=== PATIENT | male | born 1945 | race Hispanic/Latino ===

== ENCOUNTER 2017-08-02 22:56 | Inpatient (IN) | payer OTHER, MEDICARE ==
[~2017-08-02 22:56] MED LIST: AEC81 PO; AMLO5TAB2 PO; CLOP75TA32 PO; ENAL2.5T PO; FENO54TA6 PO; ISOS60TA4 PO; METO25TA6 PO; NITR0.4T50 SL; PRAV80TA21 PO
[2017-08-02] MEDS ORDERED: ASPIRIN 81MG TAB.CHEW ONE (23:13)
[2017-08-02] MEDS ORDERED: NITROGLYCERIN 0.4 MG SL TAB SL ONE (23:13)
[2017-08-02] MEDS ORDERED: NITROGLYCERIN 50 MG/D5% WATER 1 BOT ONE (23:21)
[2017-08-02 23:30] LABS: BASOPHILS % (AUTO) 0.3 % (0.0-5.0); HEMATOCRIT 41.7 % (42-54); LYMPHOCYTES % (AUTO) 29.4 % (21.0-51.0); MEAN CORPUSCULAR HEMOGLOBIN 30.2 pg (27.0-33.0); MEAN CORPUSCULAR VOLUME 88.8 fL (79-99); MONOCYTES % (AUTO) 15.3 % (3.0-13.0); PLATELET COUNT (AUTO) 181 K/uL (130-400); RED CELL DISTRIBUTION WIDTH 13.5 % (11.0-15.5); WHITE BLOOD COUNT (AUTO) 6.2 K/uL (4.8-10.8)
[2017-08-02 23:50] LABS: INR 0.96 (0.85-1.15); PARTIAL THROMBOPLASTIN TIME 27.5 SEC (26.3-35.5); PROTHROMBIN TIME 10.1 SEC (9.6-11.6)
[2017-08-03] VITALS (14 sets, daily range): BP systolic 91–145; BP diastolic 50–79
[2017-08-03 00:09] LABS: ALBUMIN 3.9 g/dL (3.5-5.0); BILIRUBIN,TOTAL 0.4 mg/dL (0.2-1.0); CREATINE KINASE MB 0.8 ng/mL (0.5-3.6); CREATININE 1.1 mg/dL (0.5-1.5); POTASSIUM 3.8 mmol/L (3.5-5.1); TOTAL PROTEIN, SERUM 7.3 g/dL (6.0-8.3)
[2017-08-03 07:11] LABS: CREATINE KINASE MB 0.8 ng/mL (0.5-3.6); TROPONIN I 0.17 ng/mL (0.00-0.06)
[2017-08-03] MEDS ORDERED: ESOM40CA PO (09:35)
[2017-08-03] MEDS ORDERED: SODIUM CHLORIDE 0.9% 1000ML 1,000 ML IV SCH (09:35)
[2017-08-03] MEDS ORDERED: RANO500T2 PO (09:35)
[2017-08-03] MEDS ORDERED: ACETAMINOPHEN 325 MG TAB PO PRN ×2 (09:45)
[2017-08-03] MEDS ORDERED: MORPHINE SULFATE 2 MG/ML 1ML SYG IV PRN (09:45)
[2017-08-03] MEDS ORDERED: MAG HYDROX/AL HYDROX/SIMETH ES 30 ML SUSP UDCUP PO PRN (09:45)
[2017-08-03] MEDS ORDERED: ONDANSETRON HCL 4 MG/2 ML VIAL IV PRN (09:45)
[2017-08-03] MEDS ORDERED: LACTULOSE 20 GM/30 ML UDCUP PO PRN (09:45)
[2017-08-03] MEDS ORDERED: DiphenhydrAMINE HCL 50 MG/ML VIAL IV PRN (09:45)
[2017-08-03] MEDS ORDERED: DIPHENHYDRAMINE HCL 25 MG CAPSULE PO PRN (09:45)
[2017-08-03] MEDS ORDERED: NITROGLYCERIN 0.4 MG SL TAB SL PRN (09:45)
[2017-08-03] MEDS ORDERED: LIDOCAINE HCL-MPF 1% 2ML VIAL IVP PRN (10:00)
[2017-08-03] MEDS ORDERED: POTASSIUM CHLORIDE 20MEQ/100ML 100 ML IV PRN (10:00)
[2017-08-03] MEDS ORDERED: POTASSIUM CHLORIDE 20 MEQ ERTAB PO PRN (10:00)
[2017-08-03] MEDS ORDERED: GLUCAGON 1MG KIT 1 MG ML IM PRN (10:00)
[2017-08-03] MEDS ORDERED: DEXTROSE 50%-WATER 50 ML DISP.SYRIN IV PRN (10:00)
[2017-08-03] MEDS ORDERED: POTASSIUM CHLORIDE 10% ELIXIR 20 MEQ/15 ML UDCUP PO PRN (10:00)
[2017-08-03] MEDS ORDERED: IOPAMIDOL-370 75 ML VIAL IV ONE (10:20)
[2017-08-03] MEDS ORDERED: IOPAMIDOL-370 100 ML VIAL IV ONE (10:20)
[2017-08-03] MEDS ORDERED: SODIUM BICARB 50MEQ 50ML VIAL ONE (10:20)
[2017-08-03] MEDS ORDERED: HEPARIN SODIUM 1000UNIT/ML 10ML VIAL ONE (10:20)
[2017-08-03] MEDS ORDERED: NITROGLYCERIN 50 MG/D5% WATER 0 BOT ONE (10:21)
[2017-08-03] MEDS ORDERED: LIDOCAINE HCL 2% 20ML ONE (10:21)
[2017-08-03] MEDS ORDERED: ISOVUE-370 50ML VIAL IV ONE (10:40)
[2017-08-03] MEDS ORDERED: HYDRALAZINE HCL 20 MG/ML VIAL ONE (11:05)
[2017-08-03] MEDS ORDERED: METOPROLOL TARTRATE 1 MG/ML 5ML VIAL IV ONE ×2 (11:25→11:31)
[2017-08-03] MEDS: INSULIN HUMULIN R 100 UNIT/ML 3ML SQ SCH ×3 (11:30→20:09)
[2017-08-03] MEDS ORDERED: FENTANYL CITRATE PF 50 MCG/1 ML 2ML VIAL ONE (11:36)
[2017-08-03] MEDS: SODIUM CHLORIDE 0.9% 1000ML 1,000 ML IV SCH ×2 (12:39→22:44)
[2017-08-03] MEDS ORDERED: ONDANSETRON HCL 4 MG/2 ML VIAL IVP PRN (12:45)
[2017-08-03] MEDS ORDERED: ASPIRIN 81MG TAB.CHEW ONE (12:45)
[2017-08-03] MEDS ORDERED: TEMAZEPAM 30 MG CAP PO PRN (12:45)
[2017-08-03] MEDS ORDERED: CLOPIDOGREL BISULFATE 75 MG TAB ONE (12:45)
[2017-08-03] MEDS ORDERED: ACETAMINOPHEN-CODEINE 300/30MG TAB PO PRN (12:45)
[2017-08-03] MEDS ORDERED: NITROGLYCERIN 50 MG/D5% WATER 1 BOT IV PRN (12:45)
[2017-08-03] MEDS: ACETAMINOPHEN-CODEINE 300/30MG TAB PO PRN ×2 (16:19→20:06)
[2017-08-04] VITALS (13 sets, daily range): BP systolic 118–170; BP diastolic 58–79
[2017-08-04 04:30] LABS: MEAN CORPUSCULAR HEMOGLOBIN 30.3 pg (27.0-33.0); MEAN CORPUSCULAR HGB CONC 33.8 g/dL (32.0-36.0); MEAN CORPUSCULAR VOLUME 89.5 fL (79-99); PLATELET COUNT (AUTO) 164 K/uL (130-400); RED BLOOD CELL COUNT(AUTO) 4.47 MIL/uL (4.50-6.20); RED CELL DISTRIBUTION WIDTH 14.1 % (11.0-15.5); WHITE BLOOD COUNT (AUTO) 7.8 K/uL (4.8-10.8)
[2017-08-04 04:43] LABS: POTASSIUM 4.3 mmol/L (3.5-5.1)
[2017-08-04] MEDS: INSULIN HUMULIN R 100 UNIT/ML 3ML SQ SCH ×2 (05:38→11:16)
[2017-08-04] MEDS ORDERED: ATORVASTATIN CALCIUM 20 MG TABLET PO SCH (09:00)
[2017-08-04] MEDS ORDERED: CLOPIDOGREL BISULFATE 75 MG TAB PO SCH ×2 (09:00)
[2017-08-04] MEDS ORDERED: PANTOPRAZOLE SODIUM 40 MG TABLET.DR PO SCH (09:00)
[2017-08-04] MEDS ORDERED: ENOXAPARIN SODIUM 40 MG/0.4 ML SYRINGE SQ SCH (09:00)
[2017-08-04] MEDS ORDERED: ASPIRIN 325MG EC TAB 325 MG TABLET.DR PO SCH (09:00)
[2017-08-04] MEDS ORDERED: **HM** FENOFIBRATE 54MG PO SCH (09:00)
[2017-08-04] MEDS ORDERED: ASPIRIN 81MG TAB.CHEW PO SCH (09:00)
[2017-08-04] MEDS ORDERED: ENALAPRIL MALEATE 5 MG TAB PO SCH (09:00)
[2017-08-04] MEDS ORDERED: AMLODIPINE BESYLATE 5 MG TAB PO SCH (09:00)
[2017-08-04] MEDS ORDERED: METOPROLOL TARTRATE 25 MG TAB PO SCH (09:00)
[2017-08-04] MEDS ORDERED: ROSU20TA PO (10:00)
[2017-08-04] MEDS ORDERED: CLOP75TA32 PO (12:35)
== END 2017-08-04 13:58 | disposition home or self-care (01) | DRG 247 ==
LOC: EDH 22:56 → EDHIP 08-03 00:30 → 2CH 08-03 12:59
PROVIDERS: ADMIT Internal Medicine; ATTEND Internal Medicine
PROC: 027236Z Dilation of Coronary Artery, Three Arteries with Three Drug-eluting Intraluminal Devices, Percutaneous Approach (ICD-10-PCS; principal; 2017-08-03)
PROC: 4A023N7 Measurement of Cardiac Sampling and Pressure, Left Heart, Percutaneous Approach (ICD-10-PCS; 2017-08-03)
PROC: B2151ZZ Fluoroscopy of Left Heart using Low Osmolar Contrast (ICD-10-PCS; 2017-08-03)
PROC: B2111ZZ Fluoroscopy of Multiple Coronary Arteries using Low Osmolar Contrast (ICD-10-PCS; 2017-08-03)
PROC: B2131ZZ Fluoroscopy of Multiple Coronary Artery Bypass Grafts using Low Osmolar Contrast (ICD-10-PCS; 2017-08-03)
PROC: B2181ZZ Fluoroscopy of Left Internal Mammary Bypass Graft using Low Osmolar Contrast (ICD-10-PCS; 2017-08-03)
DX: I25.110 Atherosclerotic heart disease of native coronary artery with unstable angina pectoris (principal); E11.22 Type 2 diabetes mellitus with diabetic chronic kidney disease; E11.42 Type 2 diabetes mellitus with diabetic polyneuropathy; I16.1 Hypertensive emergency; E11.51 Type 2 diabetes mellitus with diabetic peripheral angiopathy without gangrene; I13.10 Hypertensive heart and chronic kidney disease without heart failure, with stage 1 through stage 4 chronic kidney disease, or unspecified chronic kidney disease; I25.82 Chronic total occlusion of coronary artery; E78.2 Mixed hyperlipidemia; N18.2 Chronic kidney disease, stage 2 (mild); Z68.37 Body mass index [BMI] 37.0-37.9, adult; I87.2 Venous insufficiency (chronic) (peripheral); I70.203 Unspecified atherosclerosis of native arteries of extremities, bilateral legs; K21.9 Gastro-esophageal reflux disease without esophagitis; H26.9 Unspecified cataract; Z83.3 Family history of diabetes mellitus; Z82.49 Family history of ischemic heart disease and other diseases of the circulatory system; Z88.6 Allergy status to analgesic agent; Z88.2 Allergy status to sulfonamides; Z88.8 Allergy status to other drugs, medicaments and biological substances; Z79.82 Long term (current) use of aspirin; Z79.899 Other long term (current) drug therapy; Z87.891 Personal history of nicotine dependence; Z95.1 Presence of aortocoronary bypass graft; Z95.5 Presence of coronary angioplasty implant and graft
CPT/HCPCS: 36415; 71045; 80048; 80053; 80061; 82550; 82553; 82948; 83874; 84484; 85025; 85027; 85347; 85610; 85730; 93005; 93459; 99152; 99153; 99291; C1725; C1760; C1769; C1884; C1887; C1894; C9600; C9601; C9604; C9605; J0360; J1644; J1815; J2405; J3010; J3490; J7030; Q9967

== ENCOUNTER 2018-10-17 06:33 | Emergency (ER) | payer OTHER, MEDICARE ==
[~2018-10-17 06:33] MED LIST changes: -AMLO5TAB2 PO; +AMLO5TAB9 PO; +ESOM40CA PO; -FENO54TA6 PO; -PRAV80TA21 PO; +RANO500T2 PO; +ROSU20TA23 PO
[2018-10-17 07:26] LABS: APPEARANCE,URINE Clear (CLEAR); BILIRUBIN,URINE Negative (NEGATIVE); COLOR,URINE Yellow (YELLOW); GLUCOSE, URINE (UA) TRACE mg/dL (NEGATIVE); KETONES,URINE Negative (NEGATIVE); LEUKOCYTE ESTERASE ,URINE Small (NEGATIVE); NITRATE,URINE Negative (NEGATIVE); OCCULT BLOOD,URINE Negative (NEGATIVE); PH,URINE 7.5 (5.0-8.0); PROTEIN,URINE Trace mg/dL (NEGATIVE)
[2018-10-17] MEDS ORDERED: ACETAMINOPHEN 325 MG TAB ONE (07:34)
[2018-10-17] MEDS ORDERED: IPRATROPIUM/ALBUTEROL SULFATE 3 ML SOLUTION IH ONE (07:53)
[2018-10-17 07:54] LABS: BASOPHILS % (AUTO) 0.2 % (0.0-5.0); EOSINOPHILS % (AUTO) 0.6 % (0.0-8.0); HEMATOCRIT 39.6 % (42-54); LYMPHOCYTES % (AUTO) 3.7 % (21.0-51.0); MEAN CORPUSCULAR HEMOGLOBIN 30.3 pg (27.0-33.0); MEAN CORPUSCULAR HGB CONC 33.7 g/dL (32.0-36.0); MEAN CORPUSCULAR VOLUME 89.7 fL (79-99); MONOCYTES % (AUTO) 7.4 % (3.0-13.0); NEUTROPHILS % (AUTO) 88.1 % (40.0-77.0); PLATELET COUNT (AUTO) 164 K/uL (130-400); RED BLOOD CELL COUNT(AUTO) 4.42 MIL/uL (4.50-6.20); RED CELL DISTRIBUTION WIDTH 14.1 % (11.0-15.5); WHITE BLOOD COUNT (AUTO) 7.1 K/uL (4.8-10.8)
[2018-10-17 08:01] LABS: CARBON DIOXIDE 24 mmol/L (21-32); CHLORIDE 99 mmol/L (101-111); GLOMERULAR FILTR. RATE CALC 78 mL/min (>60); GLUCOSE,RANDOM 168 mg/dL (70-105); POTASSIUM 3.9 mmol/L (3.5-5.1); SODIUM SERUM 133 mmol/L (136-145); UREA NITROGEN, BLOOD 8 mg/dL (7-18)
[2018-10-17 08:07] LABS: INR 1.02 (0.85-1.15); PARTIAL THROMBOPLASTIN TIME 29.2 SEC (26.3-35.5); PROTHROMBIN TIME 10.7 SEC (9.6-11.6)
[2018-10-17 08:13] LABS: ALANINE AMINOTRANSFERASE 27 U/L (12-78); ALBUMIN 3.8 g/dL (3.5-5.0); ASPARTATE AMINOTRANSFERASE 21 U/L (10-37); BILIRUBIN,TOTAL 0.4 mg/dL (0.2-1.0); CREATINE KINASE, TOTAL 171 U/L (21-232); MYOGLOBIN 106 ng/mL (10-92); TOTAL PROTEIN, SERUM 7.4 g/dL (6.0-8.3); TROPONIN I < 0.04 ng/mL (0.00-0.06)
[2018-10-17 08:33] LABS: BACTERIA,URINE Rare /HPF (None Seen); RBC,URINE 0-1 /HPF (0-1); SQUAMOUS EPITHELIAL CELL,UR Rare /HPF (0-2)
[2018-10-17] MEDS ORDERED: DEXAMETHASONE SOD PHOSPHATE 10MG/ML 1ML VIAL ONE (08:40)
== END 2018-10-17 10:58 | disposition home or self-care (01) ==
LOC: EDH 06:33
DX: J20.9 Acute bronchitis, unspecified (principal); I10 Essential (primary) hypertension; I25.10 Atherosclerotic heart disease of native coronary artery without angina pectoris; E78.5 Hyperlipidemia, unspecified; Z88.2 Allergy status to sulfonamides
CPT/HCPCS: 36415; 71045; 80053; 81001; 82550; 83605 ×2; 83874; 84484; 85025; 85610; 85730; 87040 ×2; 87077; 87088; 87186; 87804 ×2; 93005; 94640; 96374; 96375; 99284; J1100

== ENCOUNTER 2019-01-08 11:03 | Emergency (ER) | payer OTHER, MEDICARE ==
[2019-01-08 12:21] LABS: BASOPHILS % (AUTO) 0.3 % (0.0-5.0); EOSINOPHILS % (AUTO) 0.3 % (0.0-8.0); HEMATOCRIT 41.5 % (42-54); LYMPHOCYTES % (AUTO) 8.7 % (21.0-51.0); MEAN CORPUSCULAR HEMOGLOBIN 29.8 pg (27.0-33.0); MEAN CORPUSCULAR HGB CONC 33.4 g/dL (32.0-36.0); MEAN CORPUSCULAR VOLUME 89.2 fL (79-99); MONOCYTES % (AUTO) 11.1 % (3.0-13.0); NEUTROPHILS % (AUTO) 79.6 % (40.0-77.0); PLATELET COUNT (AUTO) 211 K/uL (130-400); RED BLOOD CELL COUNT(AUTO) 4.65 MIL/uL (4.50-6.20); RED CELL DISTRIBUTION WIDTH 14.1 % (11.0-15.5)
[2019-01-08 12:34] LABS: CREATININE 0.9 mg/dL (0.5-1.5); POTASSIUM 4.4 mmol/L (3.5-5.1)
[2019-01-08 12:39] LABS: ALBUMIN 3.9 g/dL (3.5-5.0); BILIRUBIN,TOTAL 0.9 mg/dL (0.2-1.0); TOTAL PROTEIN, SERUM 7.5 g/dL (6.0-8.3)
== END 2019-01-08 14:15 | disposition home or self-care (01) ==
LOC: EDH 11:03
DX: I10 Essential (primary) hypertension (principal); R42 Dizziness and giddiness; R53.1 Weakness; E78.5 Hyperlipidemia, unspecified; I25.10 Atherosclerotic heart disease of native coronary artery without angina pectoris; Z88.2 Allergy status to sulfonamides; Z95.1 Presence of aortocoronary bypass graft; Z98.890 Other specified postprocedural states
CPT/HCPCS: 36415; 80053; 82550; 84484; 85025; 93005

== ENCOUNTER 2019-03-01 11:04 | Emergency (ER) | payer OTHER, MEDICARE ==
[2019-03-01] MEDS ORDERED: CLINDAMYCIN HCL 150 MG CAP ONE (11:27)
== END 2019-03-01 11:47 | disposition home or self-care (01) ==
LOC: EDH 11:04
DX: L72.3 Sebaceous cyst (principal); L03.312 Cellulitis of back [any part except buttock and flank]; E78.5 Hyperlipidemia, unspecified; I10 Essential (primary) hypertension; I25.10 Atherosclerotic heart disease of native coronary artery without angina pectoris; Z88.2 Allergy status to sulfonamides; Z95.1 Presence of aortocoronary bypass graft
CPT/HCPCS: 10061

== ENCOUNTER 2020-11-03 22:08 | Observation (INO) | payer OTHER, MEDICARE ==
[~2020-11-03] VITALS: Ht 172.7 cm; Wt 94.3 kg
[~2020-11-03 22:08] MED LIST changes: +AMLO-257 PO; -AMLO5TAB9 PO; -ENAL2.5T PO; +ENAL2.5T16 PO; -ISOS60TA4 PO; +ISOS60TA77 PO
[2020-11-03] MEDS ORDERED: NITROGLYCERIN 1GM/1 INCH PACKET TD ONE (22:24)
[2020-11-03] MEDS ORDERED: ASPIRIN 325 MG TABLET ONE (22:24)
[2020-11-03 22:31] LABS: BASOPHILS % (AUTO) 0.5 % (0.0-5.0); EOSINOPHILS % (AUTO) 1.7 % (0.0-8.0); HEMATOCRIT 42.1 % (42-54); LYMPHOCYTES % (AUTO) 20.6 % (21.0-51.0); MEAN CORPUSCULAR HEMOGLOBIN 29.6 pg (27.0-33.0); MEAN CORPUSCULAR HGB CONC 33.3 g/dL (32.0-36.0); MONOCYTES % (AUTO) 4.1 % (3.0-13.0); NEUTROPHILS % (AUTO) 71.9 % (40.0-77.0); PLATELET COUNT (AUTO) 165 K/uL (130-400); RED BLOOD CELL COUNT(AUTO) 4.73 MIL/uL (4.50-6.20); RED CELL DISTRIBUTION WIDTH 13.2 % (11.0-15.5); WHITE BLOOD COUNT (AUTO) 4.2 K/uL (4.8-10.8)
[2020-11-03 22:48] LABS: CREATININE 1.2 mg/dL (0.5-1.5); POTASSIUM 3.9 mmol/L (3.5-5.1)
[2020-11-03 22:52] LABS: ALBUMIN 4.1 g/dL (3.5-5.0); BILIRUBIN,TOTAL 0.5 mg/dL (0.2-1.0); TOTAL PROTEIN, SERUM 8.1 g/dL (6.0-8.3)
[2020-11-03 22:52] LABS: APPEARANCE,URINE Cloudy (CLEAR); BILIRUBIN,URINE Negative (NEGATIVE); COLOR,URINE Yellow (YELLOW); GLUCOSE, URINE (UA) >=1000 mg/dL (NEGATIVE); KETONES,URINE Negative (NEGATIVE); LEUKOCYTE ESTERASE ,URINE Moderate (NEGATIVE); NITRATE,URINE Positive (NEGATIVE); OCCULT BLOOD,URINE Moderate (NEGATIVE); PROTEIN,URINE POS 2+ mg/dL (NEGATIVE)
[2020-11-03 23:07] LABS: B-TYPE NATRIURETIC PEPTIDE 94 pg/mL (0-100)
[2020-11-03 23:14] LABS: BACTERIA,URINE Many /HPF (None Seen); WBC,URINE 26-50 /HPF (0-1)
[2020-11-04] MEDS ORDERED: ACETAMINOPHEN 325 MG TAB ONE (01:15)
[2020-11-04] MEDS ORDERED: 1/2 NORMAL SALINE 1,000 ML IV ONE (01:48)
[2020-11-04 06:49] LABS: TROPONIN I 0.19 ng/mL (0.00-0.06)
[2020-11-04] MEDS ORDERED: PANT40TA54 PO (08:24)
[2020-11-04] MEDS ORDERED: ISOS120T14 PO (08:24)
[2020-11-04] MEDS ORDERED: FENO54TA6 PO (08:25)
[2020-11-04] MEDS ORDERED: ATOR20TA65 PO (08:25)
[2020-11-04] MEDS ORDERED: RAMI10CA69 PO (08:25)
[2020-11-04] MEDS ORDERED: DEXTROSE 50%-WATER 50 ML DISP.SYRIN IV PRN (09:00)
[2020-11-04] MEDS ORDERED: NITROGLYCERIN 0.4 MG SL TAB SL PRN (09:00)
[2020-11-04] MEDS ORDERED: LACTULOSE 20 GM/30 ML UDCUP PO PRN (09:00)
[2020-11-04] MEDS ORDERED: MAG HYDROX/AL HYDROX/SIMETH ES 30 ML SUSP UDCUP PO PRN (09:00)
[2020-11-04] MEDS: CLOPIDOGREL BISULFATE 75 MG TAB PO SCH (09:00)
[2020-11-04] MEDS: LISINOPRIL 40 MG TABLET PO SCH (09:00)
[2020-11-04] MEDS ORDERED: POTASSIUM CHLORIDE 20MEQ/100ML 100 ML IV PRN (09:00)
[2020-11-04] MEDS ORDERED: GLUCAGON 1MG KIT 1 MG ML IM PRN (09:00)
[2020-11-04] MEDS ORDERED: POTASSIUM CHLORIDE 10% ELIXIR 20 MEQ/15 ML UDCUP PO PRN (09:00)
[2020-11-04] MEDS ORDERED: LIDOCAINE HCL-MPF 1% 2ML VIAL IV PRN ×2 (09:00)
[2020-11-04] MEDS: ***HM***(Fenofibrate 54 MG) PO SCH (09:00)
[2020-11-04] MEDS: ISOSORBIDE MONO 60 MG TAB.SR PO SCH (09:00)
[2020-11-04] MEDS: PANTOPRAZOLE SODIUM 40 MG TABLET.DR PO SCH (09:00)
[2020-11-04] MEDS ORDERED: POTASSIUM CHLORIDE 10MEQ/100ML 100 ML IV PRN (09:00)
[2020-11-04] MEDS: AMLODIPINE BESYLATE 5 MG TAB PO SCH (09:00)
[2020-11-04] MEDS ORDERED: ONDANSETRON HCL 4 MG/2 ML VIAL IV PRN (09:00)
[2020-11-04] MEDS ORDERED: ACETAMINOPHEN 325 MG TAB PO PRN ×2 (09:00)
[2020-11-04] MEDS ORDERED: DIPHENHYDRAMINE HCL 25 MG CAPSULE PO PRN (09:00)
[2020-11-04] MEDS ORDERED: DiphenhydrAMINE HCL 50 MG/ML VIAL IV PRN (09:00)
[2020-11-04] MEDS: METOPROLOL TARTRATE 25 MG TAB PO SCH (09:00)
[2020-11-04] MEDS ORDERED: POTASSIUM CHLORIDE 20 MEQ ERTAB PO PRN (09:00)
[2020-11-04 09:15] VITALS: BP 183/78
[2020-11-04] MEDS: SODIUM CHLORIDE 0.9% 1000ML 1,000 ML IV SCH ×2 (09:15→22:42)
[2020-11-04] MEDS ORDERED: GLIPIZIDE XL 10MG TAB PO SCH (09:45)
[2020-11-04 11:00] VITALS: BP 166/71
[2020-11-04] MEDS: INSULIN HUMULIN R 100 UNIT/ML 3ML SQ SCH ×3 (11:30→21:05)
[2020-11-04] MEDS: ENOXAPARIN SODIUM 40 MG/0.4 ML SYRINGE SQ SCH (11:30)
[2020-11-04] MEDS: CEFTRIAXONE SODIUM 1 GM IV SCH ×4 (12:43→22:41)
[2020-11-04] MEDS ORDERED: REGADENOSON 0.4 MG/5 ML PF SYG IVP SCH (15:30)
[2020-11-04 20:00] VITALS: BP 161/75
[2020-11-04] MEDS ORDERED: ATORVASTATIN CALCIUM 20 MG TABLET PO SCH (21:00)
[2020-11-05 00:06] VITALS: BP 119/71
[2020-11-05 04:00] VITALS: BP 153/61
[2020-11-05 05:24] LABS: MEAN CORPUSCULAR HEMOGLOBIN 29.4 pg (27.0-33.0); MEAN CORPUSCULAR HGB CONC 33.2 g/dL (32.0-36.0); MEAN CORPUSCULAR VOLUME 88.7 fL (79-99); RED BLOOD CELL COUNT(AUTO) 4.62 MIL/uL (4.50-6.20); RED CELL DISTRIBUTION WIDTH 12.9 % (11.0-15.5)
[2020-11-05] MEDS: INSULIN HUMULIN R 100 UNIT/ML 3ML SQ SCH (06:37)
[2020-11-05 07:30] VITALS: BP 167/76
[2020-11-05] MEDS: ***HM***(Fenofibrate 54 MG) PO SCH (09:00)
[2020-11-05] MEDS ORDERED: RAMI10CA69 PO (09:40)
[2020-11-05] MEDS ORDERED: CEPH500T PO (09:40)
[2020-11-05] MEDS ORDERED: EMPA25TA PO (09:41)
[2020-11-05] MEDS: METOPROLOL TARTRATE 25 MG TAB PO SCH (09:55)
[2020-11-05] MEDS: ISOSORBIDE MONO 60 MG TAB.SR PO SCH (09:56)
[2020-11-05] MEDS: PANTOPRAZOLE SODIUM 40 MG TABLET.DR PO SCH (09:56)
[2020-11-05] MEDS: LISINOPRIL 40 MG TABLET PO SCH (09:57)
[2020-11-05] MEDS: AMLODIPINE BESYLATE 5 MG TAB PO SCH (09:57)
[2020-11-05] MEDS: CLOPIDOGREL BISULFATE 75 MG TAB PO SCH (09:57)
[2020-11-05] MEDS: ENOXAPARIN SODIUM 40 MG/0.4 ML SYRINGE SQ SCH (09:58)
[2020-11-05] MEDS: CEFTRIAXONE SODIUM 1 GM IV SCH (10:07)
[2020-11-16] MEDS ORDERED: HYDRALAZINE HCL 20 MG/ML VIAL ONE (22:28)
== END 2020-11-05 12:00 | disposition home or self-care (01) ==
LOC: EDH 22:08 → EDHIP 23:30 → INTOOBSV 23:30 → 3CH 11-04 10:20
PROVIDERS: ADMIT Internal Medicine; ATTEND Internal Medicine
DX: I25.119 Atherosclerotic heart disease of native coronary artery with unspecified angina pectoris (principal); E11.65 Type 2 diabetes mellitus with hyperglycemia; I49.5 Sick sinus syndrome; I13.10 Hypertensive heart and chronic kidney disease without heart failure, with stage 1 through stage 4 chronic kidney disease, or unspecified chronic kidney disease; E11.22 Type 2 diabetes mellitus with diabetic chronic kidney disease; N18.2 Chronic kidney disease, stage 2 (mild); E78.2 Mixed hyperlipidemia; E66.01 Morbid (severe) obesity due to excess calories; N39.0 Urinary tract infection, site not specified; B96.20 Unspecified Escherichia coli [E. coli] as the cause of diseases classified elsewhere; I25.2 Old myocardial infarction; I87.8 Other specified disorders of veins; E11.51 Type 2 diabetes mellitus with diabetic peripheral angiopathy without gangrene; K21.9 Gastro-esophageal reflux disease without esophagitis; E11.42 Type 2 diabetes mellitus with diabetic polyneuropathy; I42.9 Cardiomyopathy, unspecified; Z95.1 Presence of aortocoronary bypass graft; Z95.5 Presence of coronary angioplasty implant and graft; Z91.19 Patient's noncompliance with other medical treatment and regimen; Z79.02 Long term (current) use of antithrombotics/antiplatelets; Z79.82 Long term (current) use of aspirin; Z79.84 Long term (current) use of oral hypoglycemic drugs; Z79.899 Other long term (current) drug therapy; Z88.2 Allergy status to sulfonamides; Z88.6 Allergy status to analgesic agent; Z68.38 Body mass index [BMI] 38.0-38.9, adult
CPT/HCPCS: 36415 ×3; 71045; 78452; 80048; 80053; 81001; 82550 ×2; 82948 ×3; 83690; 83874; 83880; 84484 ×3; 85025; 85027; 87077; 87088; 87186; 93005 ×2; 93017; 93306; 93356; 96361 ×2; 96372; 96374; 96376; 99285; A9500 ×2; G0378 ×26; J0696 ×2; J1650 ×2; J1815 ×3; J2785

== ENCOUNTER 2022-06-03 22:38 | Emergency (ER) | payer MEDICARE ==
[~2022-06-03] VITALS: Ht 172.7 cm; Wt 88.9 kg
[~2022-06-03 22:38] MED LIST changes: +ATOR20TA65 PO; +CEPH500T PO; +EMPA25TA PO; -ENAL2.5T16 PO; -ESOM40CA PO; +FENO54TA6 PO; +ISOS120T14 PO; -ISOS60TA77 PO; +PANT40TA54 PO; +RAMI10CA69 PO; -RANO500T2 PO; -ROSU20TA23 PO
[2022-06-03] MEDS ORDERED: DOXY-469 PO (23:39)
[2022-06-03 23:56] VITALS: BP 160/92
[2022-06-04] MEDS ORDERED: DOXYCYCLINE HYCLATE 100 MG TABLET PO SCH
== END 2022-06-04 00:13 | disposition home or self-care (01) ==
LOC: EDH 22:38
DX: I10 Essential (primary) hypertension (principal); R68.83 Chills (without fever); E78.00 Pure hypercholesterolemia, unspecified; E11.9 Type 2 diabetes mellitus without complications; Z79.84 Long term (current) use of oral hypoglycemic drugs; Z88.2 Allergy status to sulfonamides; Z88.5 Allergy status to narcotic agent; Z88.8 Allergy status to other drugs, medicaments and biological substances

== ENCOUNTER 2022-11-09 17:47 | Emergency (ER) | payer MEDICARE ==
[~2022-11-09] VITALS: Ht 172.7 cm; Wt 87.1 kg
[~2022-11-09 17:47] MED LIST changes: +DOXY-469 PO
[2022-11-09] MEDS ORDERED: DEXAMETHASONE SOD PHOSPHATE 4 MG/ML 1ML VIAL IM SCH (18:30)
[2022-11-09] MEDS ORDERED: HYDROCODONE/ACETAMINOPHEN 5/325 MG TAB PO ONE (18:30)
[2022-11-09] MEDS ORDERED: KETOROLAC 30MG VIAL (30MG/ML) IM ONE (18:30)
[2022-11-09] MEDS ORDERED: LIDOCAINE HCL 1% 20 ML VIAL ONE (18:48)
[2022-11-09] MEDS ORDERED: CLIN-141 PO (19:19)
[2022-11-09] MEDS ORDERED: IBUP-2070 PO (19:19)
[2022-11-09] MEDS ORDERED: MUPI22OI2 TP (19:19)
[2022-11-09] MEDS ORDERED: CEFTRIAXONE 1G VIAL IM ONE (19:30)
[2022-11-09] MEDS ORDERED: IBUPROFEN 600 MG TABLET PO ONE (19:30)
[2022-11-09 19:35] VITALS: BP 148/74
== END 2022-11-09 20:01 | disposition home or self-care (01) ==
LOC: EDH 17:47
DX: L02.212 Cutaneous abscess of back [any part, except buttock and flank] (principal); I10 Essential (primary) hypertension; E78.00 Pure hypercholesterolemia, unspecified; E11.9 Type 2 diabetes mellitus without complications; M19.90 Unspecified osteoarthritis, unspecified site; Z88.8 Allergy status to other drugs, medicaments and biological substances; Z79.899 Other long term (current) drug therapy
CPT/HCPCS: 99283; 10060; 96372; J0696

== ENCOUNTER 2023-02-07 15:52 | Emergency (ER) | payer OTHER, MEDICARE ==
[~2023-02-07] VITALS: Ht 172.7 cm; Wt 87.1 kg
[~2023-02-07 15:52] MED LIST changes: +CLIN-141 PO; +IBUP-2070 PO; +MUPI22OI2 TP
[2023-02-07 16:00] VITALS: BP 126/74; PULSE 66; RESP 18; O2SAT 98
== END 2023-02-07 16:40 | disposition home or self-care (01) ==
LOC: EDH 15:52
DX: Z04.1 Encounter for examination and observation following transport accident (principal); I10 Essential (primary) hypertension; E11.9 Type 2 diabetes mellitus without complications; E78.00 Pure hypercholesterolemia, unspecified; M19.90 Unspecified osteoarthritis, unspecified site; Z79.84 Long term (current) use of oral hypoglycemic drugs; Z79.899 Other long term (current) drug therapy; Z85.46 Personal history of malignant neoplasm of prostate; Z88.2 Allergy status to sulfonamides; Z88.8 Allergy status to other drugs, medicaments and biological substances; Z95.1 Presence of aortocoronary bypass graft; Z98.890 Other specified postprocedural states; V89.2XXA Person injured in unspecified motor-vehicle accident, traffic, initial encounter; Y93.I9 Activity, other involving external motion; Y92.488 Other paved roadways as the place of occurrence of the external cause; Y99.8 Other external cause status
CPT/HCPCS: 99281

== ENCOUNTER 2023-10-13 06:01 | Observation (INO) | payer MEDICARE ==
[~2023-10-13] VITALS: Ht 172.7 cm; Wt 86.7 kg
[~2023-10-13 06:01] MED LIST changes: +ACET-2079 PO; -ATOR20TA65 PO; +ATOR40TA71 PO; -CEPH500T PO; -CLIN-141 PO; -DOXY-469 PO; +ESOM40CA54 PO; +EZET10TA48 PO; +FURO20TA4 PO; -IBUP-2070 PO; -ISOS120T14 PO; +ISOS60TA77 PO; +METO25 PO; -MUPI22OI2 TP; -PANT40TA54 PO; -RAMI10CA69 PO; +RANO500T2 PO; +SACU1TAB PO
[2023-10-13 06:39] LABS: BASOPHILS # (AUTO) 0.03 K/uL (0.00-0.20); BASOPHILS % (AUTO) 0.7 % (0.0-5.0); EOSINOPHILS % (AUTO) 2.4 % (0.0-8.0); HEMATOCRIT 45.5 % (42-54); IMMATURE GRANULOCYTE ABSOLUTE 0.03 K/uL (0-1); LYMPHOCYTES # (AUTO) 0.7 K/uL (1.0-4.8); LYMPHOCYTES % (AUTO) 15.7 % (21.0-51.0); MEAN CORPUSCULAR HEMOGLOBIN 29.6 pg (27.0-33.0); MEAN CORPUSCULAR VOLUME 89.7 fL (79-99); MONOCYTES # (AUTO) 0.6 K/uL (0.1-1.0); NEUTROPHILS # (AUTO) 2.8 K/uL (1.8-7.7); NEUTROPHILS % (AUTO) 66.5 % (40.0-77.0); PLATELET COUNT (AUTO) 184 K/uL (130-400); RED BLOOD CELL COUNT(AUTO) 5.07 MIL/uL (4.50-6.20); RED CELL DISTRIBUTION WIDTH 13.4 % (11.0-15.5); WHITE BLOOD COUNT (AUTO) 4.2 K/uL (4.8-10.8)
[2023-10-13 06:47] LABS: INR <= 0.93 (0.85-1.15); PROTHROMBIN TIME 10.4 SEC (9.6-11.6)
[2023-10-13] MEDS: ENOXAPARIN SODIUM 80 MG/0.8 ML SQ ONE (06:47)
[2023-10-13] MEDS: METOPROLOL TARTRATE 1 MG/ML 5ML VIAL IV ONE (06:48)
[2023-10-13 06:49] LABS: PARTIAL THROMBOPLASTIN TIME 28.6 SEC (26.3-35.5)
[2023-10-13] MEDS: NITROGLYCERIN 1GM OINT 1 INCH/1GM TD ONE (06:49)
[2023-10-13 07:01] LABS: BILIRUBIN,TOTAL 0.7 mg/dL (0.2-1.0); CREATININE 1.2 mg/dL (0.5-1.3); MAGNESIUM 2.2 mg/dL (1.80-2.40); POTASSIUM 4.2 mmol/L (3.5-5.1); THYROID STIMULATING HORMONE 0.74 uIU/mL (0.36-3.74); TOTAL PROTEIN, SERUM 7.5 g/dL (6.0-8.3)
[2023-10-13 07:39] LABS: B-TYPE NATRIURETIC PEPTIDE 78 pg/mL (0-100)
[2023-10-13] MEDS ORDERED: NITROGLYCERIN 0.4 MG SL TAB SL PRN (14:00)
[2023-10-13] MEDS ORDERED: ARTIFICAL TEARS SOL 15 ML OP PRN ×2 (14:00→17:30)
[2023-10-13] MEDS ORDERED: HYDRALAZINE 25MG TABLET PO PRN (14:00)
[2023-10-13] MEDS ORDERED: DIPHENHYDRAMINE HCL 25 MG CAPSULE PO PRN (14:00)
[2023-10-13] MEDS ORDERED: ALPRAZOLAM 0.5 MG TABLET PO PRN (14:00)
[2023-10-13] MEDS ORDERED: ACETAMINOPHEN 325 MG TAB PO PRN ×2 (14:00)
[2023-10-13] MEDS ORDERED: POLYETHYLENE GLYCOL 3350 17 GM POWD.PACK PO PRN (14:00)
[2023-10-13] MEDS ORDERED: ONDANSETRON 4MG INJ IV PRN (14:00)
[2023-10-13] MEDS ORDERED: BENZOCAINE/MENTH/CETYLPYRD CL 1 EACH LOZENGE MM PRN (14:00)
[2023-10-13] MEDS ORDERED: DOCUSATE SODIUM 100 MG CAP PO PRN (14:00)
[2023-10-13] MEDS ORDERED: LOPERAMIDE HCL 2 MG CAP PO PRN (14:00)
[2023-10-13] MEDS ORDERED: GUAIFENESIN SUGAR-FREE 100 MG/5 ML UDCUP PO PRN (14:00)
[2023-10-13] MEDS ORDERED: LIDOCAINE HCL 2% VISCOUS 30 ML, MAG/ALUM/SIMETH 30ML 30 ML, DICYCLOMINE HCL 20 MG PO PRN ×2 (14:00→15:00)
[2023-10-13] MEDS ORDERED: LACTULOSE 20 GM/30 ML UDCUP PO PRN (14:00)
[2023-10-13] MEDS: INSULIN HUMULIN R 100 UNIT/ML 3ML SQ SCH (16:30)
[2023-10-13] MEDS: ISOSORBIDE MONO 60MG SR TAB PO ONE (18:22)
[2023-10-13] MEDS: IPRATROPIUM/ALBUTEROL SULFATE 3 ML SOLUTION IH SCH (19:25)
[2023-10-13 19:28] VITALS: PULSE 50; RESP 18
[2023-10-13 19:30] VITALS: PULSE 50; RESP 18; O2SAT 100
[2023-10-13] MEDS: RANOLAZINE 500 MG TAB.SR.12H PO SCH (20:16)
[2023-10-13] MEDS: SACUBITRIL/VALSARTAN 1 EACH TABLET PO SCH (20:16)
[2023-10-13] MEDS: METOPROLOL TARTRATE 25 MG TAB PO SCH (20:16)
[2023-10-13] MEDS ORDERED: RANOLAZINE 500 MG TAB.SR.12H PO SCH (21:00)
[2023-10-14] VITALS (15 sets, daily range): BP systolic 104–164; BP diastolic 43–72; PULSE 41–77; RESP 17–20; O2SAT 98–99
[2023-10-14 03:53] LABS: HEMATOCRIT 40.7 % (42-54); MEAN CORPUSCULAR HEMOGLOBIN 29.6 pg (27.0-33.0); MEAN CORPUSCULAR HGB CONC 31.7 g/dL (32.0-36.0); MEAN CORPUSCULAR VOLUME 93.3 fL (79-99); RED BLOOD CELL COUNT(AUTO) 4.36 MIL/uL (4.50-6.20); RED CELL DISTRIBUTION WIDTH 13.3 % (11.0-15.5); WHITE BLOOD COUNT (AUTO) 3.9 K/uL (4.8-10.8)
[2023-10-14 04:15] LABS: CREATININE 1.1 mg/dL (0.5-1.3); MAGNESIUM 2.3 mg/dL (1.80-2.40); PHOSPHORUS 3.5 mg/dL (2.5-4.9); POTASSIUM 4.3 mmol/L (3.5-5.1)
[2023-10-14] MEDS ORDERED: ISOSORBIDE MONO 60MG SR TAB PO SCH (09:00)
[2023-10-14] MEDS: ENOXAPARIN SODIUM 40 MG/0.4 ML SYRINGE SQ SCH (09:00)
[2023-10-14] MEDS: FUROSEMIDE 20 MG TABLET PO SCH (09:15)
[2023-10-14] MEDS: ATORVASTATIN 40 MG TABLET PO SCH (09:15)
[2023-10-14] MEDS: ASPIRIN 81 MG EC TAB PO SCH (09:16)
[2023-10-14] MEDS: AMLODIPINE 5 MG TAB PO SCH (09:16)
[2023-10-14] MEDS: CLOPIDOGREL 75MG TAB PO SCH (09:17)
[2023-10-14] MEDS ORDERED: [UNRECOGNIZED DRUG - REMARK] MISC SCH (19:00)
[2023-10-14] MEDS ORDERED: [UNRECOGNIZED DRUG - REMARK] MISC SCH ×2 (19:00→23:45)
[2023-10-14] MEDS: DRONEDARONE HYDROCHLORIDE 400 MG TABLET PO SCH (20:53)
[2023-10-14] MEDS: APIXABAN 5 MG TABLET PO SCH (20:53)
[2023-10-14] MEDS ORDERED: RANOLAZINE 500 MG TAB.SR.12H PO SCH (21:00)
[2023-10-14] MEDS ORDERED: DRONEDARONE HYDROCHLORIDE 400 MG TABLET PO SCH (21:00)
[2023-10-15] VITALS (8 sets, daily range): BP systolic 133–150; BP diastolic 63–65; PULSE 48–58; RESP 18–20; O2SAT 98–99
[2023-10-15 04:02] LABS: MEAN CORPUSCULAR HEMOGLOBIN 29.9 pg (27.0-33.0); MEAN CORPUSCULAR HGB CONC 32.5 g/dL (32.0-36.0); MEAN CORPUSCULAR VOLUME 92.1 fL (79-99); RED BLOOD CELL COUNT(AUTO) 4.78 MIL/uL (4.50-6.20); RED CELL DISTRIBUTION WIDTH 13.3 % (11.0-15.5); WHITE BLOOD COUNT (AUTO) 4.1 K/uL (4.8-10.8)
[2023-10-15 04:23] LABS: POTASSIUM 4.3 mmol/L (3.5-5.1)
[2023-10-15] MEDS ORDERED: DRON400T7 PO (15:10)
[2023-10-15] MEDS ORDERED: APIX5TAB PO (15:10)
== END 2023-10-15 15:34 | disposition home or self-care (01) ==
LOC: EDH 06:01 → EDHIP 12:43 → 4DH 22:13
PROVIDERS: ADMIT Internal Medicine Critical Care Medicine; ATTEND Internal Medicine Critical Care Medicine
DX: R07.89 Other chest pain (principal); I42.6 Alcoholic cardiomyopathy; E78.5 Hyperlipidemia, unspecified; E11.65 Type 2 diabetes mellitus with hyperglycemia; I48.0 Paroxysmal atrial fibrillation; I11.0 Hypertensive heart disease with heart failure; I50.32 Chronic diastolic (congestive) heart failure; E66.9 Obesity, unspecified; K21.9 Gastro-esophageal reflux disease without esophagitis; I70.203 Unspecified atherosclerosis of native arteries of extremities, bilateral legs; E11.42 Type 2 diabetes mellitus with diabetic polyneuropathy; I25.810 Atherosclerosis of coronary artery bypass graft(s) without angina pectoris; I25.2 Old myocardial infarction; Z79.899 Other long term (current) drug therapy; Z79.84 Long term (current) use of oral hypoglycemic drugs; Z79.02 Long term (current) use of antithrombotics/antiplatelets; Z88.2 Allergy status to sulfonamides; Z85.46 Personal history of malignant neoplasm of prostate; Z95.1 Presence of aortocoronary bypass graft; Z79.82 Long term (current) use of aspirin; Z88.1 Allergy status to other antibiotic agents; Z88.5 Allergy status to narcotic agent; Z68.30 Body mass index [BMI] 30.0-30.9, adult
CPT/HCPCS: 96372; 96374; 99285; 84443; 82550 ×3; 83735 ×2; 84484 ×4; 80053; 83880; 85025; 85378; 85610; 85730; 82948 ×7; 36415 ×3; 71045; 93005 ×5; 94640 ×8; 84100; 80048 ×2; 85027 ×2; G0378 ×49; J3490; J1650

== ENCOUNTER → 2023-11-17 | Outpatient (CLI) | payer MEDICARE ==
[~2023-11-17] MED LIST changes: -ACET-2079 PO; +APIX5TAB PO; -CLOP75TA32 PO; +DRON400T7 PO; -METO25 PO; -METO25TA6 PO
[2023-11-17 12:21] LABS: BASOPHILS # (AUTO) 0.03 K/uL (0.00-0.20); BASOPHILS % (AUTO) 0.9 % (0.0-5.0); EOSINOPHILS # (AUTO) 0.07 K/uL (0.00-0.70); HEMATOCRIT 42.8 % (42-54); IMMATURE GRANULOCYTE ABSOLUTE 0.04 K/uL (0-1); LYMPHOCYTES # (AUTO) 0.7 K/uL (1.0-4.8); LYMPHOCYTES % (AUTO) 19.3 % (21.0-51.0); MEAN CORPUSCULAR HEMOGLOBIN 29.7 pg (27.0-33.0); MEAN CORPUSCULAR VOLUME 92.8 fL (79-99); MONOCYTES # (AUTO) 0.6 K/uL (0.1-1.0); MONOCYTES % (AUTO) 17.2 % (3.0-13.0); NEUTROPHILS # (AUTO) 2.1 K/uL (1.8-7.7); NEUTROPHILS % (AUTO) 59.5 % (40.0-77.0); PLATELET COUNT (AUTO) 187 K/uL (130-400); RED BLOOD CELL COUNT(AUTO) 4.61 MIL/uL (4.50-6.20); RED CELL DISTRIBUTION WIDTH 13.9 % (11.0-15.5); WHITE BLOOD COUNT (AUTO) 3.5 K/uL (4.8-10.8)
[2023-11-17 12:47] LABS: POTASSIUM 4.2 mmol/L (3.5-5.1)
== END | disposition home or self-care (01) ==
LOC: LAB 08:07
PROVIDERS: ATTEND Internal Medicine Cardiovascular Disease
DX: I50.22 Chronic systolic (congestive) heart failure (principal)
CPT/HCPCS: 36415; 80048; 83880; 85025

== ENCOUNTER 2024-01-13 14:23 | Emergency (ER) | payer MEDICARE ==
[~2024-01-13] VITALS: Ht 172.7 cm; Wt 89.8 kg
[~2024-01-13 14:23] MED LIST changes: -ESOM40CA54 PO; +ESOM40CA66 PO
[2024-01-13 15:58] LABS: BASOPHILS # (AUTO) 0.03 K/uL (0.00-0.20); BASOPHILS % (AUTO) 0.4 % (0.0-5.0); EOSINOPHILS # (AUTO) 0.02 K/uL (0.00-0.70); EOSINOPHILS % (AUTO) 0.3 % (0.0-8.0); IMMATURE GRANULOCYTE ABSOLUTE 0.11 K/uL (0-1); LYMPHOCYTES # (AUTO) 0.4 K/uL (1.0-4.8); LYMPHOCYTES % (AUTO) 5.8 % (21.0-51.0); MEAN CORPUSCULAR HEMOGLOBIN 29.3 pg (27.0-33.0); MEAN CORPUSCULAR VOLUME 91.5 fL (79-99); MONOCYTES # (AUTO) 1.2 K/uL (0.1-1.0); MONOCYTES % (AUTO) 17.1 % (3.0-13.0); NEUTROPHILS # (AUTO) 5.2 K/uL (1.8-7.7); NEUTROPHILS % (AUTO) 74.8 % (40.0-77.0); PLATELET COUNT (AUTO) 184 K/uL (130-400); RED BLOOD CELL COUNT(AUTO) 4.37 MIL/uL (4.50-6.20); RED CELL DISTRIBUTION WIDTH 14.5 % (11.0-15.5); WHITE BLOOD COUNT (AUTO) 6.9 K/uL (4.8-10.8)
[2024-01-13 16:11] LABS: CREATININE 1.1 mg/dL (0.5-1.3); POTASSIUM 3.7 mmol/L (3.5-5.1)
[2024-01-13 16:16] LABS: ALBUMIN 2.9 g/dL (3.5-5.0); BILIRUBIN,TOTAL 0.4 mg/dL (0.2-1.0); TOTAL PROTEIN, SERUM 7.2 g/dL (6.0-8.3)
[2024-01-13] MEDS: LEVOFLOXACIN 750 MG/D5W 150ML BAG IV SCH (17:47)
[2024-01-13] MEDS ORDERED: LEVO-70 PO (18:05)
[2024-01-13] MEDS ORDERED: KETO10TA2 PO (18:05)
[2024-01-13 18:27] LABS: APPEARANCE,URINE CLEAR (CLEAR); BILIRUBIN,URINE NEGATIVE (NEGATIVE); COLOR,URINE YELLOW (YELLOW); GLUCOSE, URINE (UA) >=1000 mg/dL (NEGATIVE); KETONES,URINE NEGATIVE (NEGATIVE); LEUKOCYTE ESTERASE ,URINE 75 Leu/uL (NEGATIVE); NITRATE,URINE NEGATIVE (NEGATIVE); OCCULT BLOOD,URINE NEGATIVE (NEGATIVE); PROTEIN,URINE NEGATIVE (NEGATIVE)
[2024-01-13 18:28] LABS: ADD UA MICROSCOPIC YES
[2024-01-13] MEDS: KETOROLAC 30MG VIAL (30MG/ML) IVP ONE (18:30)
[2024-01-13 18:32] LABS: SQUAMOUS EPITHELIAL CELL,UR RARE /HPF (0-2); WBC,URINE 26-50 /HPF (0-1)
[2024-01-13 19:23] VITALS: BP 142/57; PULSE 57; RESP 17; O2SAT 99
== END 2024-01-13 19:34 | disposition home or self-care (01) ==
LOC: EDH 14:23
DX: N45.3 Epididymo-orchitis (principal); I10 Essential (primary) hypertension; E78.00 Pure hypercholesterolemia, unspecified; Z79.82 Long term (current) use of aspirin; Z79.899 Other long term (current) drug therapy; Z98.890 Other specified postprocedural states; Z88.2 Allergy status to sulfonamides; Z88.8 Allergy status to other drugs, medicaments and biological substances
CPT/HCPCS: 99285; 96365; 96366; 96375; 80053; 85025; 87040 ×2; 87086 ×2; 87186; 83605; 81001; 36415; 76870; J1956; J1885; 96361

== ENCOUNTER 2024-09-25 12:59 | Emergency (ER) | payer MEDICARE ==
[~2024-09-25] VITALS: Ht 172.7 cm; Wt 92.5 kg
[~2024-09-25 12:59] MED LIST changes: +KETO10TA2 PO; +LEVO-70 PO
--- NOTE | 2024-09-25 13:15 | ERN ---
ED Note History of Present Illness Stated Complaint: LACERATION Chief Complaint: Mechanical Fall Time Seen by MD: 13:00 Dictation: PATIENT IS A 78-YEAR-OLD MALE HERE WITH HIS DAUGHTER WITH COMPLAINTS OF HAVING ABRASIONS AND POSSIBLE LACERATION TO LEFT UPPER ARM ONSET 1 HOUR PRIOR TO ARRIVAL. HE STATES HE WAS WORKING WHEN HE TRIPPED AND FELL ON HIS LEFT ARM. NO BLOOD THINNERS, TETANUS SHOT IS UP TO DATE AND NO HISTORY OF DIABETES. PATIENT HAS DRESSINGS IN PLACE TO THE LEFT ARM DISTAL NEUROVASCULAR CMS INTACT. Allergies: Coded Allergies: Sulfa(Sulfonamide Antibiotics) (Verified Allergy, 05/27/12) tramadol (Verified Allergy, 05/27/12) Home Meds Active Scripts Mupirocin (Bactroban 2% Oint) 2 % Oint, 1 APPL TP TID for 5 Days, #15 GM 0 Refills apply to affected area(s) Prov:RADHA FONTANEZ NP 09/25/24 Cephalexin (Cephalexin) 500 Mg Tablet, 1 TAB PO TID for 10 Days, #30 TAB 0 Refills Prov:RADHA FONTANEZ NP 09/25/24 Ibuprofen (Ibuprofen 800 mg Tab) 800 Mg Tab, 800 MG PO Q8H PRN for fever or pain, #30 TAB 0 Refills Prov:RADHA FONTANEZ NP 09/25/24 Ketorolac Tromethamine (Ketorolac Tromethamine) 10 Mg Tablet, 10 MG PO AD, #8 TAB Take one tablet by mouth with food every8 hours until gone. Prov:RADHA FONTANEZ NP 01/13/24 Levofloxacin (Levofloxacin) 500 Mg Tablet, 500 MG PO DAILY for 10 Days, #10 TAB Prov:RADHA FONTANEZ NP 01/13/24 Dronedarone Hydrochloride (Multaq) 400 Mg Tablet, 400 MG PO BID for 30 Days, #60 TAB Prov:KRISTA BAUTISTA MANAGER NUCLEAR 10/15/23 Apixaban (Eliquis) 5 Mg Tablet, 5 MG PO BID for AFIB for 30 Days, #60 TAB Prov:KRISTA BAUTISTA MANAGER NUCLEAR 10/15/23 Furosemide (Furosemide) 20 Mg Tablet, 20 MG PO AM, #90 TAB 3 Refills Prov:NATALIA DYKES MD 09/23/23 Sacubitril/Valsartan (Entresto 24 mg-26 mg Tablet) 24 Mg-26 Mg Tablet, 1 EACH PO BID, #180 TAB 3 Refills Prov:NATALIA DYKES MD 09/23/23 Ranolazine (RANEXA) 500 Mg Tab.er.12h, 500 MG PO BID, #180 TAB 3 Refills Prov:NATALIA DYKES MD 09/23/23 Isosorbide Mononitrate (Isosorbide Mononitrate ER) 60 Mg Tab.er.24h, 60 MG PO DAILY, #90 TAB 3 Refills Prov:NATALIA DYKES MD 09/23/23 Empagliflozin (Jardiance) 25 Mg Tablet, 25 MG PO DAILY, #90 TAB 1 Refill Prov:MAREK MICHAEL MD 11/05/20 Fenofibrate (Fenofibrate) 54 Mg Tablet, 54 MG PO DAILY for 90 Days, #90 TAB Prov:MAREK MICHAEL MD 11/04/20 Reported Medications Ezetimibe (Ezetimibe) 10 Mg Tablet, 1 TAB PO DAILY 09/21/23 Esomeprazole Magnesium (Esomeprazole Magnesium) 40 Mg Capsule.dr, 1 CAP PO DAILY 09/21/23 Atorvastatin Calcium (Atorvastatin Calcium) 40 Mg Tablet, 1 TAB PO DAILY 09/21/23 Nitroglycerin (Nitroglycerin) 0.4 Mg Tab.subl, 0.4 MG SL ONCE PRN for PAIN, TAB.SL 04/01/14 Amlodipine Besylate (Amlodipine Besylate) 5 Mg Tablet, 5 MG PO DAILY, TAB 04/01/14 Aspirin (ASPIRIN 81 MG ECTAB) 81 Mg Tablet.dr, 81 MG PO AM, TAB 04/01/14 Past Medical History Past Medical History: High Cholesterol, Hypertension Additional Past Medical Hx: REMISSION FOR PROSTATE CA Surgical History: CABG Surgical History Other: HX OF QUADRUPLE BYPASS Social History: Other RN Note Reviewed/Agreed w/PFSH: Yes Review of System Dictation CONSTITUTIONAL: NEGATIVE EXCEPT FOR HPI HEAD/FACE: NEGATIVE EXCEPT FOR HPI EENT: NEGATIVE EXCEPT FOR HPI RESPIRATORY: NEGATIVE EXCEPT FOR HPI GASTROINTESTINAL/ABDOMINAL: NEGATIVE EXCEPT FOR HPI GENITOURINARY: NEGATIVE EXCEPT FOR HPI MUSCULOSKELETAL: NEGATIVE EXCEPT FOR HPI INTEGUMENTARY: NEGATIVE EXCEPT FOR HPI SKIN ABRASIONS LEFT FOREARM AND ANTERIOR BICEPS NEUROLOGICAL/PSYCH: NEGATIVE EXCEPT FOR HPI HEMATOLOGIC/LYMPHATIC: NEGATIVE EXCEPT FOR HPI ALL SYSTEMS NEGATIVE, EXCEPT NOTED ABOVE. 13 POINT REVIEW OF SYSTEMS ASSESSED AND ALL NEGATIVE EXCEPT FOR ABOVE. Initial Vital Sign VS Vital Signs Date Time Temp Pulse Resp B/P (MAP) Pulse Ox O2 Delivery O2 Flow Rate FiO2 09/25/24 13:11 98.4 51 16 126/53 97 Room Air 0 09/25/24 17:36 21 Physical Exam Dictation VITAL SIGNS REVIEWED GENERAL APPEARANCE: ALERT, ORIENTED X 3, MILD ACUTE DISTRESS, WELL DEVELOPED, NOURISHED. HEAD AND FACE: NON-TRAUMATIC. EYES: PERRL, PINK CONJUNCTIVAS, EYELID NO TRAUMA, ANTERIOR CHAMBER WITH ARCUS SENILIS. EARS: PINNAS INTACT AND NO SIGNS OF TRAUMA OR ERYTHEMA EAR CANALS CLEAR AND NO DISCHARGE TM NO ERYTHEMA NOSE: NO DISCHARGE, NO BLEEDING. OROPHARYNX: MOUTH NORMAL, TONGUE PINK, PHARYNX CLEAR,NO ERYTHEMA, TONSILS NO EXUDATES, NO ABSCESSES NOTED, MUCOUS MEMBRANE MOIST NECK: SUPPLE, NON-TENDER, NO THYROMEGALY, NO MASSES, NO JVD, NO BRUITS BREAST:DEFERRED CHEST:NO TENDERNESS, NO CREPITUS, NO PARADOXICAL MOVEMENT, NO RETRACTIONS LUNGS:CLEAR, WELL-VENTILATED, SYMMETRIC, NO RALES, NO WHEEZING, NO RHONCHI, NO STRIDOR, GOOD BREATH SOUNDS BILATERALLY HEART: REGULAR RATE, REGULAR RHYTHM, NO MURMUR, NO GALLOPS VASCULAR: NO PERIPHERAL EDEMA, ABDOMEN: SOFT, POSITIVE BOWEL SOUNDS, NONDISTENDED, NO GUARDING, NONTENDER, NO REBOUND, NO MASSES NO HEPATOMEGALY, NO SPLENOMEGALY, NO CARMICHAEL'S SIGN, NO HERNIAS. RECTAL: DEFERRED GENITAL: DEFERRED NEUROLOGICAL: NORMAL SPEECH, MOTOR FUNCTION INTACT, SENSORY FUNCTION INTACT MUSCULOSKELETAL: NECK NONTENDER, FULL RANGE OF MOTION, BACK NONTENDER, FULL RANGE OF MOTION, EXTREMITIES: NONTEND MULTIPLE SUPERFICIAL ABRASIONS TO LEFT ANTERIOR BICEPS AND FOREARM. NO REPAIR POSSIBLE LYMPHATIC: DEFERRED Results (Laboratory/Radiology) Labs Reviewed?: Yes ED Course ED Course Orders Procedure Category Date Status Time Ibuprofen 800 Mg Tab PHA 09/25/24 Complete (Motrin) 13:30 Tetanus,Diphtheria PHA 09/25/24 Complete Tox [Adult] (Diphther 15:30 Neomy PHA 09/25/24 Complete Sulf/Bacitra/Polymyxin 15:30 Cephalexin 500 Mg PHA 09/25/24 Complete Capsule (Keflex 500 Mg 15:30 Current Medications Medications (Trade) Dose Ordered Sig/Felicia Route PRN Reason Start Time Stop Time Status Last Admin Dose Admin Cephalexin (Keflex 500 MG CAPS) 1,000 mg ONCE ONCE PO 09/25/24 15:30 09/25/24 15:31 DC Ibuprofen (moTRIN) 800 mg ONCE ONCE PO 09/25/24 13:30 09/25/24 13:31 DC Neomycin/ Polymyxin/ Bacitracin (Triple Antibiotic Ointment) 1 appl ONCE ONCE TP 09/25/24 15:30 09/25/24 15:31 DC Tetanus/ Diphtheria Toxoids Adsorbed (DiphthERIA-teTANUS TOXOID [ADULT]/ DECAVAC) 0.5 ml ONCE ONCE IM 09/25/24 15:30 09/25/24 15:31 DC Vital Signs Date Time Temp Pulse Resp B/P (MAP) Pulse Ox O2 Delivery O2 Flow Rate FiO2 09/25/24 17:36 98.4 53 16 126/53 97 Room Air* 0 21 09/25/24 13:11 98.4 51 16 126/53 97 Room Air 0 Medical Decision Making MDM MEDICAL DECISION-MAKING BASED ON PAIN MANAGEMENT AND UPDATING TETANUS. PATIENT HAS MULTIPLE SUPERFICIAL ABRASIONS TO LEFT ARM, NO REPAIRS POSSIBLE PATIENT IS STARTED ON ANTIBIOTICS AND DISCHARGED HOME WITH WOUND CARE INSTRUCTIONS AND FOLLOW UP WITH HIS DOCTOR Procedure Procedure Dictation: 1500/PROCEDURE EXPLAINED TO PATIENT AND HE AGREED TO PROCEED DRESSINGS WERE REMOVED TO UPPER ARM LEFT CLEANSED WITH WOUND CLEANSER ABRASIONS WERE PREPPED WITH TRIPLE ANTIBIOTIC OINTMENT AND NONADHESIVE DRESSING PATIENT'S DAUGHTER GIVEN WOUND CARE INSTRUCTIONS DX & DISP Disposition: Discharge Departure Impression: Primary Impression: Abrasion of multiple sites of left upper arm Additional Impression: Fall Condition: Stable Scripts Mupirocin (Bactroban 2% Oint) 2 % Oint 1 APPL TP TID for 5 Days, #15 GM 0 Refills apply to affected area(s) Prov: RADHA FONTANEZ MANAGER NUCLEAR 09/25/24 Cephalexin (Cephalexin) 500 Mg Tablet 1 TAB PO TID for 10 Days, #30 TAB 0 Refills Prov: RADHA FONTANEZ MANAGER NUCLEAR 09/25/24 Ibuprofen (Ibuprofen 800 mg Tab) 800 Mg Tab 800 MG PO Q8H PRN for fever or pain, #30 TAB 0 Refills Prov: RADHA FONTANEZ MANAGER NUCLEAR 09/25/24 Additional Instructions: FOLLOW-UP WITH PRIMARY CARE PROVIDER IN 1 TO 2 DAYS. TAKE MEDICATIONS DIRECTED HERE IN THE EMERGENCY ROOM. OKAY TO CONTINUE HOME MEDICATIONS UNLESS OTHERWISE DISCUSSED DURING YOUR VISIT IN THE EMERGENCY ROOM TODAY. RETURN TO YOUR NEAREST EMERGENCY ROOM IF SYMPTOMS WORSEN OR IF THERE IS NO IMPROVEMENT. CALL 911 IF YOU NEED IMMEDIATE ASSISTANCE. TAKE TYLENOL OR MOTRIN [id number] NEEDED AND IF NO CONTRAINDICATIONS ARE PRESENT. INCREASE ORAL HYDRATION. A WOUND CULTURE OR URINE CULTURE WAS ORDERED HERE IN THE EMERGENCY ROOM DEPARTMENT PLEASE FOLLOW-UP WITH PRIMARY CARE PROVIDER AND ADVISE THEM TO GET REPEAT PORTS FROM OUR FACILITY. IF YOU HAD ANY FABIANO WRAP/SPLINTS THAT WERE APPLIED HERE, PLEASE DO NOT REMOVE THEM UNTIL YOU SEE YOUR PRIMARY CARE OR SPECIALTY. TAKE ANTIBIOTICS DIRECTED UNTIL GONE. CHANGE DRESSINGS TO ARM3 TIMES A DAY, APPLY BACTROBAN OINTMENT DIRECTED, APPLY NONADHESIVE DRESSINGS TO WOUNDS. FOLLOW UP WITH YOUR PRIMARY CARE DOCTOR IN 1-2 DAYS FOR MANAGEMENT. Referrals: YULY HANNAH MD (PCP) Time of Disposition: 15:09 I have reviewed the case, and I agree with, Diagnosis and Plan I performed a substantive portion of the visit. I have reviewed and personally made and approve the management plan that is documented in the notes by myself with PUSHPA/resident. I acknowledged full responsibility for the patient's management plan. RADHA FONTNAEZ NP Sep 25, 2024 13:15 PRISCILA SEWELL DO Sep 25, 2024 18:41
[2024-09-25] MEDS ORDERED: ibuPROFEN 800 MG TAB PO ONE (13:30)
[2024-09-25] MEDS ORDERED: MUPI22O TP (15:10)
[2024-09-25] MEDS ORDERED: IBUP-2077 PO (15:10)
[2024-09-25] MEDS ORDERED: CEPH500T PO (15:10)
[2024-09-25] MEDS: cePHALexin 500 MG CAPSULE PO ONE (15:30)
[2024-09-25] MEDS ORDERED: teTANUS/diphthERIA TOXOID [ADULT] 0.5 ML VIAL IM ONE (15:30)
[2024-09-25] MEDS: NEOMY SULF/BACITRA/POLYMYXIN B 1 EACH PACKET TP ONE (15:30)
[2024-09-25 17:36] VITALS: BP 126/53; PULSE 53; RESP 16; TEMP 98.4; O2SAT 97
--- NOTE | 2024-09-25 17:40 | NUR ---
ALL MEDS REFUSED BY PT
== END 2024-09-25 17:42 | disposition home or self-care (01) ==
LOC: EDH 12:59
DX: S50.812A Abrasion of left forearm, initial encounter (principal); E78.00 Pure hypercholesterolemia, unspecified; I10 Essential (primary) hypertension; Z79.01 Long term (current) use of anticoagulants; Z79.84 Long term (current) use of oral hypoglycemic drugs; Z79.899 Other long term (current) drug therapy; Z88.2 Allergy status to sulfonamides; Z88.5 Allergy status to narcotic agent; Z95.1 Presence of aortocoronary bypass graft; W01.0XXA Fall on same level from slipping, tripping and stumbling without subsequent striking against object, initial encounter; Y93.89 Activity, other specified; Y92.89 Other specified places as the place of occurrence of the external cause; Y99.8 Other external cause status
CPT/HCPCS: 90714; 99283